=== PATIENT | female | born 1985 | race Hispanic/Latino ===

== ENCOUNTER 2024-12-03 15:35 | Outpatient (CLI) | payer BC | END 2024-12-03 15:36 | disposition home or self-care (01) | LOC: CSHMAMMO 15:35 | PROVIDERS: ATTEND Student in an Organized Health Care Education/Training Program | DX: Z12.31 Encounter for screening mammogram for malignant neoplasm of breast (principal); N64.89 Other specified disorders of breast; Z80.3 Family history of malignant neoplasm of breast | CPT/HCPCS: 77063; 77067 ==

== ENCOUNTER 2024-12-16 08:54 | Outpatient (CLI) | payer BC | END 2024-12-16 08:55 | disposition home or self-care (01) | LOC: CSHMAMMO 08:54 | PROVIDERS: ATTEND Student in an Organized Health Care Education/Training Program | DX: N64.89 Other specified disorders of breast (principal) | CPT/HCPCS: G0279 ==